=== PATIENT | female | born 1980 | race Caucasian/White ===

== ENCOUNTER 2024-02-04 10:03 | Inpatient (IN) | payer MEDICARE, MEDICAID, SELFPAY ==
[2024-02-04 10:05] VITALS: BP 119/83; PULSE 72; RESP 16; TEMP 36.7; O2SAT 98; BMI 30.9
[2024-02-04 10:24] VITALS: BP 119/83; PULSE 72; RESP 16; TEMP 36.7; O2SAT 98
--- NOTE | 2024-02-04 10:24 | EDS_ITS ---
HPI History of Present Illness Chief Complaint: Substance Abuse Detail of Chief Complaint: Alcoholism, recent use of fentanyl and cocaine Informant: patient Onset/Context/Timing Onset: Month(s) (Use of fentanyl and cocaine for the past 1 to 2 months.) and - (Heavy alcohol use for 5 years.) Context: Gradual Onset Timing: Continuous Quality: Reports consuming 2/5/day Location: Not applicable Current Severity: Severe Maximum Severity: Severe Worsened by: Abstinence, develops tremors/shakes Relieved by: Consuming alcohol Associated Symptoms Associated Symptoms: Positive for tremor and no; Negative for vomiting*, diarrhea*, fever*, rash*, seizure, palpatations, change in mental status, trauma, sex for drugs*, suicidal ideation or homicidal ideation Narrative Narrative: Patient is a 44-year-old woman. She was in outpatient detox last year through . She was referred to the hospital by [facility]. She states she is drinking 2/5 of vodka per day. She recently started to snort cocaine and fentanyl. She last consumed alcohol at 0530. She states if he does not start drinking the morning she will get shakes.There are no records at [facility]. Prior similar symptoms: Yes Recent Illness/Hospitalization: No [facility] Medical History (Updated 02/04/24 @ 13:[address] Elvis Ovalle, DO) Alcoholism Bipolar 1 disorder Home Medications ?Medication ?Instructions ?Recorded ?Last Taken ?Type gabapentin 600 mg tablet 600 mg PO TID anxiety 02/04/24 02/01/24 22:20 History lurasidone 60 mg tablet (Latuda) 60 mg PO DAILY bipolar 02/04/24 02/01/24 History mirtazapine 15 mg tablet (Remeron) 15 mg PO DAILY insomnia 02/04/24 02/01/24 History trazodone 100 mg tablet 100 mg PO DAILY insomnia 02/04/24 02/01/24 History venlafaxine 100 mg tablet 150 mg PO DAILY depression 02/04/24 02/01/24 History Allergy/AdvReac Type Severity Reaction Status Date / Time No Known Allergies Allergy Verified 02/04/24 10:08 Social History Smoking Status: Current every day smoker tobacco type: cigarettes and e- cigarettes ROS ROS ED Constitutional Constitutional ED: Reports sweats; Denies chills, fever(s), subjective or weight loss Eyes Eyes: Denies blurry vision, change in vision or diplopia ENT ENT ED: Denies ear pain, rhinorrhea or sore throat Cardiovascular Cardiovascular: Denies chest pain or palpitations Respiratory/Chest Respiratory/Chest: Denies cough, dyspnea or dyspnea on exertion Gastrointestinal Gastrointestinal: Denies abdominal pain, melena, nausea or vomiting Genitourinary Genitourinary ED: Denies dysuria or urinary frequency Musculoskeletal Musculoskeletal: Denies arthralgias, myalgias or neck pain Integumentary Denies rash Neurologic Neurologic: Denies headache(s) or paresthesias Psychiatric Psychiatric: Reports depression; Denies anxiety or suicidal ideation Hematologic/Lymphatic Hematologic/Lymphatic: Denies easy bleeding or easy bruising EXAM Physical Exam Const Vital Signs: 02/04/24 12:06 Temperature 97.5 F L Pulse Rate 76 Respiratory Rate 14 Blood Pressure 120/72 Blood Pressure Mean 88 Pulse Ox 99 Positive well nourished and well developed Constitutional Narrative: BMI is 31.0. General Appearance ED: well developed and NAD HEENT Reports moist mucous membranes HEENT Narrative: Head is atraumatic no cephalic. Ears normal. Nares patent. Posterior pharynx is normal. Eyes PERRL and EOMs intact bilaterally Eyes Narrative: There is no nystagmus. General Eye ED: Negative for pale conjunctiva or scleral icterus Lymph Lymphatic: no lymphadenopathy noted Chest Wall inspection of chest normal and palpation of chest normal Resp normal respiratory effort and clear to auscultation bilaterally Cardio regular rate, regular rhythm, S1 normal heart sound, S2 normal heart sound and no murmurs GI soft to palpation, non-tender, non-distended and no masses Auscultation: hypoactive bowel sounds Back/Spine no CVA tenderness Extremity Extremity Narrative: Appearance is normal. There is no track mejia noted. General Extremety ED: Negative for edema or tenderness General Extremity: Negative for edema Neuro oriented x3, CN's II-XII intact bilaterally and no sensory deficits noted Pixley Coma Scale: document GCS findings Spontaneous Obeys Commands Oriented 15 Sensorium / Orientation: alert Speech: speech normal Gait (Neuro): normal gait Psych mental status grossly normal and thought process normal Skin Lesions: no lesions Rashes: no rashes Trauma: Negative for abrasion MDM MDM MDM Narrative Medical decision making narrative: Based on patient's consumption she has significant dependence. Will obtain ramiro ropriate blood work for addiction medicine admission to assess for white count, anemia, elevated liver enzymes, and alcohol withdrawal scale/score. Patient does admit to smoking 1 pack/day. She is aware that she cannot smoke. History & Record Review Additional record(s) reviewed:: No prior records Lab Data Attestation: I reviewed the patient's lab results. Lab results narrative: Competence of metabolic panel reveals mild hyponatremia. Alcohol level is 104. This to be consistent with her having a drink at 5 AM. Tox was positive for opiates and cocaine which she admitted to. Labs: Laboratory Results - last 24 hr 02/04/24 10:34 Iron 17 L TIBC 341 Iron Saturation 5.0 L Ferritin 51 Vitamin B12 804 Folate 8.50 Treatment and Re-Evaluation Narrative: The hospitalist was paged for admission for detox. She was referred by [facility]. Discharge Plan Dx/Rx/DC Orders Clinical Impression: Alcohol dependence with acute alcoholic intoxication, Opiate use, Cocaine use, Elevated blood-pressure reading without diagnosis of hypertension Disposition Disposition: Acute Care Hospital [facility] Discharge Date/Time: 02/04/24 12:51
[2024-02-04 11:06] LABS: ALB/GLOB Ratio 0.9 RATIO (0.9-2.4); AST(SGOT) 51 U/L (15-37); Alanine Aminotransfer ALT/SGPT 45 U/L (13-56); Albumin, Serum 3.1 g/dL (3.2-5.0); Alkaline Phosphatase 60 U/L (45-117); Anion Gap 8 (5-15); BUN 6 mg/dL (7-18); BUN/Creat Ratio 6.9 RATIO (10-20); Calcium,Total 8.7 mg/dL (8.5-10.1); Chloride 103 mmol/L (98-107); Creatinine, Serum 0.87 mg/dL (0.55-1.02); EST Glomerular Filtration Rate 74 mL/min (>60); Est Glom Filt Rate - Afr Amer 90 mL/min (>60); Estimated Creatinine Clearance 87.59 ml/min; Globulin 3.4 g/dL (2.2-4.2); Glucose 76 mg/dL (74-106); Potassium 3.8 mmol/L (3.5-5.1); Protein, Total 6.5 g/dL (6.4-8.2); Sodium Level 132 mmol/L (136-145)
[2024-02-04 11:07] LABS: Internal QC Validated? YES +Cl - CLEAR BKGD; Pregnancy, Serum, hCG Quali. NEGATIVE Negative
[2024-02-04 11:14] LABS: Amphetamine Urine VISTA NEGATIVE (<1000 ng/mL); Barbiturate Urine VISTA NEGATIVE (< 200 ng/mL); Benzodiazepine Urine VISTA NEGATIVE (< 200 ng/mL); Cocaine Urine VISTA POSITIVE (< 300 ng/mL); Ecstacy Urine VISTA NEGATIVE (< 500 ng/mL); Methadone Urine VISTA NEGATIVE (< 300 ng/mL); PCP Urine VISTA NEGATIVE (< 25 ng/mL); THC Urine VISTA NEGATIVE (< 50 ng/mL); Vista UDS pH Range 6
[2024-02-04 11:30] VITALS: BP 154/79; PULSE 84; RESP 16; O2SAT 97
[2024-02-04 12:06] VITALS: BP 120/72; PULSE 76; RESP 14; TEMP 36.4; O2SAT 99
--- NOTE | 2024-02-04 12:08 | PCM.HP.STD ---
HPI - General General Date of Admission: 02/04/24 Date of Service: 02/04/24 Chief Complaint: Request for alcohol and opiate detox HPI Narrative FRANCISCO GAN, is a 44 F who presented to [facility] ED on 02/04/2024 requesting alcohol and opiate detox. I saw the patient at bedside in the ED. Patient was sitting up comfortably in bed, conversing normally, in no acute distress. She did have a mild tremor noted but did not appear anxious. Patient has gone through inpatient alcohol detox many times in the past per her report. She has gone to hospitals in either [place] or [place] for this. However she has not established with [facility] and states she has a bed there after discharge, so she came to our hospital for detox. She started drinking again about 1 month ago. She has been drinking 2/5 of vodka per day. Last drink was at 5:30 AM this morning. She has also been snorting cocaine and fentanyl, states she has done this daily for the last 5 days. Does not have a significant cocaine or opiate abuse history per her report. States that she has gone through a phenobarbital taper on previous hospitalizations for alcohol withdrawal and tolerated it well. Has history of bipolar disorder and states she has been taking her home medications. Vitals stable on admit, not hypertensive or tachycardic. Alcohol level 104. Labs notable for hemoglobin 11.6, sodium 132, AST 51, ALT 45, otherwise unremarkable. No baseline labs available. Urine drug screen was positive for opiates and cocaine. Patient otherwise denies any fevers or chills. Denies any other pain or discomfort. Will be admitted for further management. [facility] Medical History (Updated 02/04/24 @ 13:[address] Elvis Ovalle, DO) Alcoholism Bipolar 1 disorder Home Medications ?Medication ?Instructions ?Recorded ?Last Taken ?Type gabapentin 600 mg tablet 600 mg PO TID 02/04/24 Unknown History lurasidone 60 mg tablet (Latuda) 60 mg PO DAILY 02/04/24 Unknown History mirtazapine 15 mg tablet (Remeron) 15 mg PO DAILY 02/04/24 Unknown History trazodone 100 mg tablet 100 mg PO DAILY 02/04/24 Unknown History venlafaxine 100 mg tablet 150 mg PO DAILY 02/04/24 Unknown History Allergy/AdvReac Type Severity Reaction Status Date / Time No Known Allergies Allergy Verified 02/04/24 10:08 Social History Smoking Status: Current every day smoker tobacco type: cigarettes ROS Constitutional Constitutional: Denies chills, fatigue, fever(s) or weakness Eyes Eyes: Denies change in vision Cardiovascular Cardiovascular: Denies chest pain Respiratory/Chest Respiratory/Chest: Denies shortness of breath at rest Gastrointestinal Gastrointestinal: Denies abdominal pain, constipation, diarrhea, nausea or vomiting Musculoskeletal Musculoskeletal: Denies arthralgias or myalgias Neurologic Neurologic: Reports tremor(s); Denies dizziness or headache(s) Vital Signs Vital Signs Vital Signs: 02/04/24 10:05 02/04/24 10:24 02/04/24 11:30 Temperature 98.1 F 98.1 F Temperature Source Temporal Oral Pulse Rate 72 72 84 Respiratory Rate 16 16 16 Blood Pressure 119/83 H 119/83 H 154/79 H Blood Pressure Mean 95 95 104 Blood Pressure Source Monitor Blood Pressure Position Sitting Pulse Ox 98 98 97 Oxygen Delivery Method Room Air Room Air Room Air 02/04/24 12:06 Temperature 97.5 F L Temperature Source Pulse Rate 76 Respiratory Rate 14 Blood Pressure 120/72 Blood Pressure Mean 88 Blood Pressure Source Blood Pressure Position Pulse Ox 99 Oxygen Delivery Method Weight Weight: 84.368 kg Body Mass Index (BMI) 30.9 Physical Exam Const alert, oriented x3 and no apparent distress Constitutional Narrative: Middle-age female, class I obesity, mild tremor noted but otherwise patient sitting up comfortably in bed, conversing normally, in no acute distress. General Appearance: cooperative and comfortable HEENT normocephalic, head/scalp atraumatic, hearing grossly normal bilaterally, nasal mucous membranes and turbinates normal and moist oral mucous membranes Eyes PERRL, EOMs intact bilaterally and conjunctivae normal Neck full ROM Chest inspection of chest normal Resp normal respiratory effort, normal air movement, no use of accessory muscles and clear to auscultation bilaterally Cardio regular rate, regular rhythm, no murmurs and peripheral pulses 2+ throughout GI normal to inspection, nondistended, normoactive bowel sounds, soft to palpation, non-tender and non-distended Back/Spine normal ROM Extremity normal to inspection, full ROM and no pedal edema Skin no rashes or lesions noted Neuro Neuro Narrative: Mild bilateral tremor noted. Psych mental status grossly normal Results Lab / Micro Data 02/04/24 10:34 Labs: Laboratory Results - last 24 hr 02/04/24 10:34: Sodium 132 L, Potassium 3.8, Chloride 103, Carbon Dioxide 21.0, Anion Gap 8, BUN 6 L, Creatinine 0.87, Estim Creat Clear Calc 87.59, Est GFR (MDRD) Af Amer 90, Est GFR (MDRD) Non-Af 74, BUN/Creatinine Ratio 6.9 L, Glucose 76, Calcium 8.7, Total Bilirubin 0.40, AST 51 H, ALT 45, Alkaline Phosphatase 60, Total Protein 6.5, Albumin 3.1 L, Globulin 3.4, Albumin/Globulin Ratio 0.9, Serum , Qual NEGATIVE, Ethyl Alcohol 104.0 02/04/24 10:38: Urine Opiates Screen POSITIVE H, Urine Methadone Screen NEGATIVE, Ur Barbiturates Screen NEGATIVE, Ur Phencyclidine Scrn NEGATIVE, Ur Amphetamines Screen NEGATIVE, MDMA (Ecstasy) Screen NEGATIVE, U Benzodiazepines Scrn NEGATIVE, Urine Cocaine Screen POSITIVE H, U Cannabinoids Screen NEGATIVE, Ur Drug Screen Comment Assessment & Plan Assessment/Plan (1) Alcohol dependence with acute alcoholic intoxication: (2) Opiate use: (3) Cocaine use: (4) Desire for detoxification: PLAN: Plan Patient is a 44-year-old female who presented [facility] ED on 02/04/2024 requesting alcohol and opiate detoxification. 1. Alcohol abuse with withdrawal and desire for detox ? Admit under inpatient status to [facility]. Addiction medicine consulted. Has gone through inpatient detox in the past and tolerated a phenobarbital taper well. Will treat with phenobarbital taper and other as needed medications per alcohol withdrawal order set. Planning for residential treatment at [facility] on discharge. 2. Opiate abuse with withdrawal and desire for detox, polysubstance abuse ? Addiction medicine consulted as above. Urine drug screen positive for opiates and cocaine on admit. Patient reports snorting fentanyl and cocaine daily for the past 5 days but had not been using much at all prior to that. Will order as needed medications per opiate withdrawal order set but hold on treating with Subutex taper for now. Can consider giving intermittent doses of Subutex during this hospitalization as needed. 3. Bipolar disorder ? Continue home venlafaxine, mirtazapine, trazodone and gabapentin. Lurasidone has a drug interaction with phenobarbital so that will be held during this admission. 4. Normocytic anemia ? Hemoglobin 11.6 on admit. No prior baseline available. Iron studies, B12 and folate ordered for further evaluation. 5. Class I obesity ? BMI 31 on admit. Complicates hospital course, care and prognosis. DVT prophylaxis: Lovenox CODE STATUS: Full code, unverified Expected disposition: Residential treatment, 2 to 3 days Total clinical time spent by myself addressing the patient's medical issues, reviewing all the data, and collaborating with patient's care team: 55 minutes. Charges/Coding Visit Charges Inpatient E&M: 83263 Init Hosp L2
[2024-02-04 12:47] VITALS: BMI 29.7
[2024-02-04 13:10] LABS: Absolute Lymphocyte Count 2.71 X10^3/uL (0.83-4.51); Absolute Neutrophil Count 5.7 X10^3/uL (2.0-7.7); Basophil# 0.07 X10^3/uL; Basophil% 0.7 % (0-1); Eosinophil# 0.55 X10^3/uL; Eosinophils% 5.7 % (0-5); Hematocrit 36.9 % (37-47); Hemoglobin 11.6 g/dL (12.0-15.0); Lymphocyte # 2.71 X10^3/ul (0.83-4.51); Lymphocyte % 28.1 % (19-41); Mean Corp Hgb Conc 31.4 g/dL (32-36); Mean Corpuscular Hgb 29.2 pg (27.0-32.0); Mean Corpuscular Volume 92.9 fL (81-99); Mean Platelet Vol. 9.7 fl (6.2-12.0); Monocyte# 0.63 X10^3/uL; Monocyte% 6.5 % (0-10); NRBC Flagged by Analyzer 0 % (0-5); Neutrophil # 5.65 X10^3/uL (2.7-7.7); Neutrophil % 58.5 % (47-70); Platelet Count 405 K/mm3 (150-450); RBC Distribution Width CV 14.2 % (11.6-14.6); RBC Distribution Width SD 47.2 fl (35.1-43.9); Red Blood Count 3.97 M/mm3 (4.2-5.4); White Blood Count 9.7 K/mm3 (4.4-11.0)
--- NOTE | 2024-02-04 13:39 | NURSING ---
Pt was crying when asked orientation questions and she realized it was her mothers birthday today. This RN offered to call her mother and tell her Happy Birthday from the pt. Pt agreeable. This RN called mother but did not answer the phone.
[2024-02-04 14:00] VITALS: BP 110/65; PULSE 74; RESP 18; TEMP 37.1; O2SAT 97
[2024-02-04 14:13] LABS: Ferritin 51 ng/mL (8-252); Iron 17 ug/dL (50-170); Iron Binding Capacity,Total 341 ug/dL (250-450)
[2024-02-04] MEDS: Methocarbamol 750 MG Tablet PO (14:24)
[2024-02-04] MEDS: Acetaminophen 325 MG Tablet 650 MG PO (14:25)
[2024-02-04] MEDS: Phenobarbital 32.4 MG Tablet 64.8 MG PO ×3 (14:25→23:05)
[2024-02-04] MEDS: cloNIDine HCl 0.1 MG Tablet PO (14:26)
[2024-02-04] MEDS: hydrOXYzine PAM 25 MG Capsule 50 MG PO ×2 (14:26→18:10)
[2024-02-04] MEDS: Gabapentin 600 MG Tablet PO ×2 (14:27→23:05)
--- NOTE | 2024-02-04 16:16 | CM.ED ---
Social Work Reason for visit: Patient requesting RAMP SW entered room, introduced self and role at [facility]. Patient stated she was here to detox, that she had been sober for 8 months but had recently relapsed. Patient states that she has been using drugs and alcohol for the last month. Patient expressed motivation to complete RAMP and continue services with [facility]. No further needs identified. Plan: Patient admitted to [facility] Yamila Hameed, [employer]KER HAND, [employer]ER MACHINE OPERATOR
[2024-02-04 18:35] LABS: Vitamin B12 804 pg/mL (211-911)
[2024-02-04 21:18] VITALS: BP 113/76; PULSE 87; RESP 15; TEMP 36.8; O2SAT 98
[2024-02-05 03:00] VITALS: BP 122/78; PULSE 79; RESP 15; TEMP 36.6; O2SAT 99
[2024-02-05] MEDS: Phenobarbital 32.4 MG Tablet 64.8 MG PO ×6 (03:26→21:55)
[2024-02-05] MEDS: Gabapentin 600 MG Tablet PO ×3 (06:37→21:56)
[2024-02-05 07:20] VITALS: BP 121/73; PULSE 77; RESP 16; TEMP 36.7; O2SAT 96
[2024-02-05] MEDS: Thiamine Hydrochloride 100 MG Tablet PO (07:31)
[2024-02-05] MEDS: Folic Acid 1 MG Tablet PO (07:31)
[2024-02-05] MEDS: Sodium Ferric Gluconat 250 MG in 0.9% Normal Saline 250 ML 135 MG IV (09:32)
[2024-02-05] MEDS: Venlafaxine XR 150 MG Capsule PO (09:43)
[2024-02-05] MEDS: Mirtazapine 15 MG Tablet PO (09:43)
[2024-02-05] MEDS: Enoxaparin 40 MG/0.4 ML Syringe SC (09:43)
--- NOTE | 2024-02-05 10:14 | ADDICTION ---
Addendum entered by Lissette Mendez 02/07/24 11:05: Pt will be picked up today at 11:30am Original Note: This marketing copywriter met with PT to conduct ASAM, MSE, AUDIT, DUDIT assessments and to plan for d/c. PT A+Ox4 and participated actively. All assessments completed and placed in PT's chart. PT plans to f/u with [facility] at [facility] for follow-up in patient treatment services on . [facility] will transport to treatment.
[2024-02-05 10:51] VITALS: O2SAT 98
--- NOTE | 2024-02-05 11:05 | PN.HOSP_ITS ---
Reason for Visit Reason for Visit: Diagnoses Alcohol dependence with intoxication, unspecified (02/04/24) Opioid use, unspecified, uncomplicated (02/04/24) Cocaine use, unspecified, uncomplicated (02/04/24) Subjective Subjective Saw patient at bedside this morning. Patient was sitting up comfortably in bed, in no acute distress. Denied any withdrawal symptoms currently. Stated the medications have been controlling her symptoms well. No other new concerns today. Objective Data Objective Data Vital Signs: Vital Signs Temp Pulse Resp BP Pulse Ox O2 Del Method 98.1 F 77 16 121/73 H 96 Room Air 02/05/24 07:20 02/05/24 07:20 02/05/24 07:20 02/05/24 07:20 02/05/24 07:20 02/05/24 07:20 Oxygen Delivery Method Room Air Weight: 83.461 kg Body Mass Index (BMI) 29.7 Intake & Output: Intake and Output for Last 24 Hours 02/03/24 02/04/24 02/05/24 23:59 23:59 23:59 Intake Total 800 / 800 200 / 200 Balance 800 / 800 200 / 200 Lab / Micro Data 02/04/24 12:59 02/04/24 10:34 Labs: Laboratory Results - last 24 hr 02/04/24 10:34: Sodium 132 L, Potassium 3.8, Chloride 103, Carbon Dioxide 21.0, Anion Gap 8, BUN 6 L, Creatinine 0.87, Estim Creat Clear Calc 87.59, Est GFR (MDRD) Af Amer 90, Est GFR (MDRD) Non-Af 74, BUN/Creatinine Ratio 6.9 L, Glucose 76, Calcium 8.7, Iron 17 L, TIBC 341, Iron Saturation 5.0 L, Ferritin 51, Total Bilirubin 0.40, AST 51 H, ALT 45, Alkaline Phosphatase 60, Total Protein 6.5, A lbumin 3.1 L, Globulin 3.4, Albumin/Globulin Ratio 0.9, Vitamin B12 804, Folate 8.50, Serum , Qual NEGATIVE 02/04/24 10:38: Urine Opiates Screen POSITIVE H, Urine Methadone Screen NEGATIVE, Ur Barbiturates Screen NEGATIVE, Ur Phencyclidine Scrn NEGATIVE, Ur Amphetamines Screen NEGATIVE, MDMA (Ecstasy) Screen NEGATIVE, U Benzodiazepines Scrn NEGATIVE, Urine Cocaine Screen POSITIVE H, U Cannabinoids Screen NEGATIVE 02/04/24 12:59: WBC 9.7, RBC 3.97 L, Hgb 11.6 L, Hct 36.9 L, MCV 92.9, MCH 29.2, MCHC 31.4 L, RDW Std Deviation 47.2 H, RDW Coeff of Juliana 14.2, Plt Count 405, MPV 9.7, Immature Gran % (Auto) 0.500, Neut % (Auto) 58.5, Lymph % (Auto) 28.1, Dickinson % (Auto) 6.5, Eos % (Auto) 5.7 H, Baso % (Auto) 0.7, Absolute Neuts (auto) 5.7, Absolute Lymphs (auto) 2.71, Nucleated RBC % 0 Physical Exam Const alert, oriented x3 and no apparent distress Constitutional Narrative: Middle-age female, class I obesity, mildly fatigued but otherwise sitting up comfortably in bed, conversing normally, in no acute distress. General Appearance: cooperative and comfortable HEENT normocephalic, head/scalp atraumatic, hearing grossly normal bilaterally, nasal mucous membranes and turbinates normal and moist oral mucous membranes Eyes PERRL, EOMs intact bilaterally and conjunctivae normal Neck full ROM Chest inspection of chest normal Resp normal respiratory effort, normal air movement, no use of accessory muscles and clear to auscultation bilaterally Cardio regular rate, regular rhythm, no murmurs and peripheral pulses 2+ throughout GI normal to inspection, nondistended, normoactive bowel sounds, soft to palpation, non-tender and non-distended Back/Spine normal ROM Extremity normal to inspection, full ROM and no pedal edema Skin no rashes or lesions noted Psych mental status grossly normal Assessment & Plan Assessment/Plan (1) Alcohol dependence with acute alcoholic intoxication: (2) Opiate use: (3) Cocaine use: (4) Desire for detoxification: PLAN: Plan Patient is a 44-year-old female who presented [facility] ED on 02/04/2024 requesting alcohol and opiate detoxification. 1. Alcohol abuse with withdrawal and desire for detox ? Addiction medicine following. Has gone through inpatient detox in the past and tolerated a phenobarbital taper well. Treating with phenobarbital taper and other as needed medications per alcohol withdrawal order set and patient has been tolerating this well. Planning for residential treatment at [facility] on discharge. 2. Opiate abuse with withdrawal and desire for detox, polysubstance abuse ? Addiction medicine following as above. Urine drug screen positive for opiates and cocaine on admit. Patient reports snorting fentanyl and cocaine daily for the past 5 days but had not been using much at all prior to that. Continue as needed medications per opiate withdrawal order set but holding on treating with Subutex taper. Will consider giving intermittent doses of Subutex during this hospitalization as needed. 3. Bipolar disorder ? Continue home venlafaxine, mirtazapine, trazodone and gabapentin. Lurasidone has a drug interaction with phenobarbital so that will be held during this admission. 4. Normocytic anemia ? Hemoglobin 11.6 on admit. No prior baseline available. Iron studies consistent with mild iron deficiency anemia. Will give 1 dose of IV iron on 02/04. 5. Class I obesity ? BMI 31 on admit. Complicates hospital course, care and prognosis. DVT prophylaxis: Lovenox CODE STATUS: Full code, unverified Expected disposition: Residential treatment, 2 to 3 days Total clinical time spent by myself addressing the patient's medical issues, reviewing all the data, and collaborating with patient's care team: 35 minutes. Charges/Coding Visit Charges Inpatient E&M: 38682 Subs Hosp L2
[2024-02-05 14:17] VITALS: BP 114/63; PULSE 85; RESP 15; TEMP 36.8; O2SAT 96
[2024-02-05 21:45] VITALS: BP 125/73; PULSE 80; RESP 16; TEMP 36.6; O2SAT 96
[2024-02-05] MEDS: traZODone 100 MG Tablet PO (21:57)
[2024-02-06] MEDS: Phenobarbital 32.4 MG Tablet 64.8 MG PO ×6 (02:22→21:46)
[2024-02-06 02:31] VITALS: BP 115/64; PULSE 69; RESP 17; TEMP 36.4; O2SAT 96
[2024-02-06] MEDS: Gabapentin 600 MG Tablet PO ×3 (05:54→21:46)
[2024-02-06 05:57] VITALS: BP 117/59; PULSE 80; RESP 18; TEMP 36.6; O2SAT 95
[2024-02-06 06:08] LABS: HEPATITIS B SURFACE AG Negative (Negative); Hep C Antibodies Non Reactive (Non Reactive); Hepatitis A IgM Antibody Negative (Negative); Hepatitis B Core AB IgM Negative (Negative)
[2024-02-06 07:09] VITALS: BP 105/63; PULSE 69; RESP 18; TEMP 36.3; O2SAT 98
[2024-02-06 07:18] VITALS: O2SAT 96
[2024-02-06] MEDS: Folic Acid 1 MG Tablet PO (08:03)
[2024-02-06] MEDS: Thiamine Hydrochloride 100 MG Tablet PO (08:03)
--- NOTE | 2024-02-06 08:10 | NURSING ---
pt a&ox3. no distress noted STAFF HOME THERAPY RN charting reviewed, no change from assessment noted. pt given syrup for breakfast, pt denies all further needs. call light within reach.
[2024-02-06] MEDS: Venlafaxine XR 150 MG Capsule PO (10:21)
[2024-02-06] MEDS: Mirtazapine 15 MG Tablet PO (10:21)
[2024-02-06] MEDS: Enoxaparin 40 MG/0.4 ML Syringe SC (10:22)
--- NOTE | 2024-02-06 11:43 | PCM.PN.HOSP ---
Reason for Visit Reason for Visit: Diagnoses Alcohol dependence with intoxication, unspecified (02/04/24) Opioid use, unspecified, uncomplicated (02/04/24) Cocaine use, unspecified, uncomplicated (02/04/24) Subjective Subjective Saw patient at bedside this morning. Patient feeling well, no withdrawal symptoms noted. No other new concerns today. Objective Data Objective Data Vital Signs: Vital Signs Temp Pulse Resp BP Pulse Ox O2 Del Method 97.3 F L 69 18 105/63 96 Room Air 02/06/24 07:09 02/06/24 07:09 02/06/24 07:09 02/06/24 07:09 02/06/24 07:18 02/06/24 07:18 Oxygen Delivery Method Room Air Weight: 83.461 kg Body Mass Index (BMI) 29.7 Intake & Output: Intake and Output for Last 24 Hours 02/04/24 02/05/24 02/06/24 23:59 23:59 23:59 Intake Total 800 / 800 470 / 470 Balance 800 / 800 470 / 470 Lab / Micro Data 02/04/24 12:59 02/04/24 10:34 Labs: Laboratory Results - last 24 hr 02/04/24 12:59: Hepatitis A IgM Ab Negative, Hep Bs Antigen Negative, Hep B Core IgM Ab Negative, Hepatitis C Ab (EIA) Non Reactive, Hep C Ab Comment Comment Physical Exam Const alert, oriented x3 and no apparent distress Constitutional Narrative: Middle-age female, class I obesity, mildly fatigued but otherwise sitting up comfortably in bed, conversing normally, in no acute distress. General Appearance: cooperative and comfortable HEENT normocephalic, head/scalp atraumatic, hearing grossly normal bilaterally, nasal mucous membranes and turbinates normal and moist oral mucous membranes Eyes PERRL, EOMs intact bilaterally and conjunctivae normal Neck full ROM Chest inspection of chest normal Resp normal respiratory effort, normal air movement, no use of accessory muscles and clear to auscultation bilaterally Cardio regular rate, regular rhythm, no murmurs and peripheral pulses 2+ throughout GI normal to inspection, nondistended, normoactive bowel sounds, soft to palpation, non-tender and non-distended Back/Spine normal ROM Extremity normal to inspection, full ROM and no pedal edema Skin no rashes or lesions noted Psych mental status grossly normal Assessment & Plan Assessment/Plan (1) Alcohol dependence with acute alcoholic intoxication: (2) Opiate use: (3) Cocaine use: (4) Desire for detoxification: PLAN: Plan Patient is a 44-year-old female who presented [facility] ED on 02/04/2024 requesting alcohol and opiate detoxification. 1. Alcohol abuse with withdrawal and desire for detox ? Addiction medicine following. Has gone through inpatient detox in the past and tolerated a phenobarbital taper well. Treating with phenobarbital taper and other as needed medications per alcohol withdrawal order set and patient has been tolerating this well. Planning for residential treatment at 180 on discharge. 2. Opiate abuse with withdrawal and desire for detox, polysubstance abuse ? Addiction medicine following as above. Urine drug screen positive for opiates and cocaine on admit. Patient reports snorting fentanyl and cocaine daily for the past 5 days but had not been using much at all prior to that. Continue as needed medications per opiate withdrawal order set but holding on treating with Subutex taper. Has not had significant withdrawal symptoms while here. 3. Bipolar disorder ? Continue home venlafaxine, mirtazapine, trazodone and gabapentin. Lurasidone has a drug interaction with phenobarbital so that will be held during this admission. 4. Normocytic anemia ? Hemoglobin 11.6 on admit. No prior baseline available. Iron studies consistent with mild iron deficiency anemia. Gave dose of IV iron on 02/04. No need for repeat CBC here, recommend outpatient CBC and iron studies in the future. 5. Class I obesity ? BMI 31 on admit. Complicates hospital course, care and prognosis. DVT prophylaxis: Lovenox CODE STATUS: Full code, unverified Expected disposition: Residential treatment, 1 to 2 days Total clinical time spent by myself addressing the patient's medical issues, reviewing all the data, and collaborating with patient's care team: 25 minutes. Charges/Coding Visit Charges Inpatient E&M: 74804 [facility] [[email or web address]] Hosp L1
[2024-02-06 13:41] VITALS: BP 108/63; PULSE 82; RESP 18; TEMP 36.7; O2SAT 100
[2024-02-06] MEDS: traZODone 100 MG Tablet PO (21:46)
[2024-02-06 21:50] VITALS: BP 129/88; PULSE 75; RESP 18; TEMP 36.5; O2SAT 96
[2024-02-07] MEDS: Gabapentin 600 MG Tablet PO (05:05)
[2024-02-07] MEDS: Phenobarbital 32.4 MG Tablet 64.8 MG PO ×2 (05:05→10:57)
[2024-02-07 05:11] VITALS: BP 123/83; PULSE 63; RESP 17; TEMP 36.5; O2SAT 95
[2024-02-07 10:40] VITALS: BP 112/62; PULSE 82; RESP 19; TEMP 36.4; O2SAT 95
[2024-02-07] MEDS: Folic Acid 1 MG Tablet PO (10:53)
[2024-02-07] MEDS: Mirtazapine 15 MG Tablet PO (10:53)
[2024-02-07] MEDS: Venlafaxine XR 150 MG Capsule PO (10:53)
[2024-02-07] MEDS: Thiamine Hydrochloride 100 MG Tablet PO (10:53)
--- NOTE | 2024-02-07 11:13 | DCINST_ITS ---
Discharge Instructions Diet Discharge Diet: No restrictions DC O2, CPAP, BIPAP needs Home O2 Discharge instructions: No Dressing / Incision Discharge Activity: No Restrictions Follow Up Care Test Results: Test results from this visit will be discussed in further detail at your follow- up appointment, if applicable. Discharge Plan Admission Admit Date/Time: 02/04/24 12:09 Primary Reason for Your Visit: Alcohol and opiate detox Attending Provider: Elvis Ovalle Primary Care Provider: Rosa Alexander CNP Discharge Orders/Prescriptions Prescriptions: Continued lurasidone [Latuda] 60 mg tablet 60 mg PO DAILY Rx Instructions: must administer with food (at least 350 calories) venlafaxine 100 mg tablet 150 mg PO DAILY gabapentin 600 mg tablet 600 mg PO TID mirtazapine [Remeron] 15 mg tablet 15 mg PO DAILY trazodone 100 mg tablet 100 mg PO DAILY Referrals / Follow Up: Rosa Alexander CNP [Other] Rosa Alexander CNP [Other] Disposition Disposition (needs filled in before D/C Order can be placed): Home, Self Care
--- NOTE | 2024-02-07 11:14 | PCM.DC.SUM ---
Providers Date of Admission: 02/04/24 Date of Discharge: 02/07/24 Primary Care Physician: Rosa Alexander Reason For Visit: ALCOHOL AND OPIATE DETOX Diagnosis Discharge Diagnosis (1) Alcohol dependence with acute alcoholic intoxication: Status: Acute Code(s): F10.229 - Alcohol dependence with intoxication, unspecified (2) Opiate use: Status: Acute Code(s): F11.90 - Opioid use, unspecified, uncomplicated (3) Cocaine use: Status: Acute Code(s): F14.90 - Cocaine use, unspecified, uncomplicated (4) Desire for detoxification: Status: Acute Medications at Discharge Home Medications gabapentin 600 mg tablet 600 mg PO TID anxiety 02/04/24 lurasidone 60 mg tablet (Latuda) 60 mg PO DAILY bipolar 02/04/24 mirtazapine 15 mg tablet (Remeron) 15 mg PO DAILY insomnia 02/04/24 trazodone 100 mg tablet 100 mg PO DAILY insomnia 02/04/24 venlafaxine 100 mg tablet 150 mg PO DAILY depression 02/04/24 Hospital Course Operations None Procedures None Summary of Care Provided Minutes Spent on Discharge: 25 Hospital Course: Patient is a 44-year-old female who presented [facility] ED on 02/04/2024 requesting alcohol and opiate detoxification. Hospital course as noted below. Patient discharged to residential treatment in stable condition on 02/06. 1. Alcohol abuse with withdrawal and desire for detox ? Addiction medicine followed. Has gone through inpatient detox in the past and tolerated a phenobarbital taper well. Treated with phenobarbital taper and other as needed medications per alcohol withdrawal order set and patient tolerated this well. Discharged to residential treatment at [facility] on 02/06 in stable condition. 2. Opiate abuse with withdrawal and desire for detox, polysubstance abuse ? Addiction medicine followed as above. Urine drug screen positive for opiates and cocaine on admit. Patient reports snorting fentanyl and cocaine daily for the past 5 days but had not been using much at all prior to that. Continue as needed medications per opiate withdrawal order set but held on treating with Subutex taper. Has not had significant withdrawal symptoms while here. 3. Bipolar disorder ? Continue home venlafaxine, mirtazapine, trazodone and gabapentin. Lurasidone has a drug interaction with phenobarbital so that will be held during this admission. 4. Normocytic anemia ? Hemoglobin 11.6 on admit. No prior baseline available. Iron studies consistent with mild iron deficiency anemia. Gave dose of IV iron on 02/04. No need for repeat CBC here, recommend outpatient CBC and iron studies in the future. 5. Class I obesity ? BMI 31 on admit. Complicated hospital course, care and prognosis. Total clinical time spent by myself addressing the patient's medical issues, reviewing all the data, and collaborating with patient's care team: 25 minutes. Physical Exam Const alert, oriented x3 and no apparent distress Constitutional Narrative: Middle-age female, class I obesity, mildly fatigued but otherwise sitting up comfortably in bed, conversing normally, in no acute distress. General Appearance: cooperative and comfortable HEENT normocephalic, head/scalp atraumatic, hearing grossly normal bilaterally, nasal mucous membranes and turbinates normal and moist oral mucous membranes Eyes PERRL, EOMs intact bilaterally and conjunctivae normal Neck full ROM Chest inspection of chest normal Resp normal respiratory effort, normal air movement, no use of accessory muscles and clear to auscultation bilaterally Cardio regular rate, regular rhythm, no murmurs and peripheral pulses 2+ throughout GI normal to inspection, nondistended, normoactive bowel sounds, soft to palpation, non-tender and non-distended Back/Spine normal ROM Extremity normal to inspection, full ROM and no pedal edema Skin no rashes or lesions noted Psych mental status grossly normal Weight / BMI Weight Weight: 83.461 kg Body Mass Index (BMI) 29.7 ABG / Lab / Microbiology Data 02/04/24 12:59 02/04/24 10:34 D/C Instructions Discharge Diet: No restrictions DC O2, CPAP, BIPAP Needs Home O2 Discharge instructions: No Meaningful Use Info Meaningful Use Meaningful Use Diagnoses (Choose all that apply): None applicable Ischemic Stroke Statin Dosing Therapy Reference: STATIN DOSE THERAPY REFERENCE: * Patients > 75 years receive moderate or high dose statin therapy. * Patients 75 years or YOUNGER should receive HIGH intensity statin dose unless contraindicated. You will be required to document reason for non-treatment if statin daily dose does not meet guidelines. HIGH DOSE STATIN THERAPY DAILY Atorvastatin > than or = to 40 mg Rosuvastatin > than or = to 20 mg Amlodipine + Atorvastatin > than or = to 2.5/40 mg Ezetimibe + Simvastatin 10/80 mg Simvastatin 80mg Discharge Plan Admission Admit Date/Time: 02/04/24 12:09 Primary Reason for Your Visit: Alcohol and opiate detox Attending Provider: Elvsi Ovalle Primary Care Provider: Rosa Alexander CNP Discharge Orders/Prescriptions Prescriptions: Continued lurasidone [Latuda] 60 mg tablet 60 mg PO DAILY Rx Instructions: must administer with food (at least 350 calories) venlafaxine 100 mg tablet 150 mg PO DAILY gabapentin 600 mg tablet 600 mg PO TID mirtazapine [Remeron] 15 mg tablet 15 mg PO DAILY trazodone 100 mg tablet 100 mg PO DAILY Referrals / Follow Up: Rosa Alexander CNP [Other] Rosa Alexander CNP [Other] Disposition Disposition (needs filled in before D/C Order can be placed): Inpatient Rehab Unit/Facility Charges/Coding Visit Charges Inpatient E&M: 71083 Disch Hosp
== END 2024-02-07 11:48 | DRG 897 ==
LOC: ED 12:12 → MS3 14:22
PROVIDERS: Admitting Provider Hospitalist; Emergency Provider Emergency Medicine; Visit Provider Hospitalist
DX: F10.139 Alcohol abuse with withdrawal, unspecified (principal); F31.9 Bipolar disorder, unspecified; D50.9 Iron deficiency anemia, unspecified; F11.23 Opioid dependence with withdrawal; F14.90 Cocaine use, unspecified, uncomplicated; E66.811 Obesity, class 1; Z68.31 Body mass index [BMI] 31.0-31.9, adult; F17.210 Nicotine dependence, cigarettes, uncomplicated; R03.0 Elevated blood-pressure reading, without diagnosis of hypertension; Z79.899 Other long term (current) drug therapy; Y90.5 Blood alcohol level of 100-119 mg/100 ml
CPT/HCPCS: 36415; 80053; 80074; 80307; 82077; 82607; 82728; 82746; 83540; 83550; 84703; 85025; 99284; A4216; J2916